=== PATIENT | female | born 1950 | race Two or more races ===

== ENCOUNTER 2022-12-20 06:15 | Day surgery (SDC) | payer OTHER ==
[~2022-12-20] VITALS: Ht 170.2 cm; Wt 75.7 kg
[~2022-12-20 06:15] MED LIST: CHILDREN'S ASPI81 MG PO; COZAAR50 MG PO; D3 + K2 DOTS 11 EACH PO; TOPROL XL50 M1 PO; XARELTO20 MG PO; ZETIA10 MG PO; ZOCOR20 MG PO
== END 2022-12-20 15:55 | disposition home or self-care (01) ==
LOC: CIR.AMB 06:15
PROVIDERS: ATTEND Surgery
DX: D05.11 Intraductal carcinoma in situ of right breast (principal); R92.1 Mammographic calcification found on diagnostic imaging of breast; R59.0 Localized enlarged lymph nodes; I10 Essential (primary) hypertension; Z20.822 Contact with and (suspected) exposure to COVID-19
CPT/HCPCS: 19301; 38525; 38792; 19281; A9541; L8699

== ENCOUNTER 2022-12-27 13:54 | Outpatient (CLI) | payer OTHER | END 2022-12-27 13:58 | disposition home or self-care (01) | LOC: LAB 13:54 | PROVIDERS: ATTEND Surgery | DX: N61.1 Abscess of the breast and nipple (principal); N61.0 Mastitis without abscess ==